=== PATIENT | male | born 1940 | race Caucasian/White ===

== ENCOUNTER 2019-12-24 16:51 | Observation (INO) | payer MEDICARE ==
[2019-12-24 17:41] LABS: #Eosinphils 0.1 thou/uL (0.0-0.7); #Lymphocytes 0.7 thou/uL (1.20-3.40); #Monocytes 0.7 thou/uL (0.11-0.59); #Neutrophils 10.7 thou/uL (1.40-6.50); %Basophils 0.1 % (0.0-1.0); %Eosinophils 0.9 % (0.0-10.0); %Lymphocytes 5.3 % (21.0-51.0); %Neutrophils 87.6 % (42.0-75.0); Hemoglobin 15.3 g/dL (14.0-18.0); Mean Corpuscular HGB CONC 34.5 g/dL (32.0-36.0); Mean Corpuscular Hemoglobin 33.3 pg (27.0-31.0); Mean Corpuscular Volume 96.5 fL (78.0-98.0); Mean Platelet Volume 7.9 fL (7.4-10.4); Platelet Count 177 thou/uL (130-400); RBC Distribution Width 12.1 % (11.5-14.5); Red Blood Cell (RBC) Count 4.58 mill/uL (4.70-6.10); White Blood Cell (WBC) Count 12.2 thou/uL (4.8-10.8)
--- NOTE | 2019-12-24 17:45 | RAD ---
EXAM: CHEST ONE VIEW HISTORY: Near syncope. Heart rate of 48. Patient weak and dizzy. COMPARISON: 03/15/2019 FINDINGS: Postsurgical changes related to CABG are again noted. A single lead left subclavian cardiac pacemakin g device remains in place. Cardiac silhouette is magnified by projection but does appear enlarged. The pulmonary vasculature is within normal limits. There is mild elevation of the right hemidiaphragm with mild volume loss at the right lung base. Minimal linear scarring versus atelectasis is seen at the lateral left lung base. The lungs otherwise appear clear. There is no consolidation seen. The most inferior aspect lateral left costophrenic angle is excluded from view. Vascular calcifications are seen in the thoracic aorta. No significant interval change. IMPRESSION: 1. No acute cardiopulmonary process. 2. Mild cardiomegaly. 3. Elevation right hemidiaphragm with mild volume loss right lung base.
[2019-12-24 17:49] LABS: INR-International Normal Ratio 1.2; PTT 32.4 SEC (22.9-36.1); Prothrombin Time 15.5 SEC (12.0-14.7)
[2019-12-24 18:04] LABS: ALT (SGPT) 14 U/L (8-55); AST (SGOT) 16 U/L (5-34); Albumin 4.3 g/dL (3.4-4.8); Alkaline Phosphatase 64 U/L (40-110); Anion Gap 12 mmol/L (10-20); BUN (Urea Nitrogen) 28 mg/dL (8.4-25.7); Bilirubin, Total 1.5 mg/dL (0.2-1.2); Calc. Creatinine Clearance 0 mL/min (70-130); Calcium 9.1 mg/dL (7.8-10.44); Carbon Dioxide 25 mmol/L (23-31); Chloride 106 mmol/L (98-107); Estimated GFR-MDRD 61; Globulin 2.8 g/dL (2.4-3.5); Glucose 131 mg/dL (83-110); Potassium 3.8 mmol/L (3.5-5.1); Protein, Total 7.1 g/dL (5.8-8.1); Sodium 139 mmol/L (136-145)
[2019-12-24 18:27] LABS: CKMB 1.8 ng/mL (0-6.6)
[2019-12-24] MEDS ORDERED: Aspirin Chewable 81 MG TAB ONE ×2 (19:10→19:12)
[2019-12-24 21:11] LABS: Troponin I 0.018 ng/mL (< 0.028)
[2019-12-24 21:30] VITALS: BMI 25.9
[2019-12-24] MEDS ORDERED: Ondansetron PF 4 MG/2 ML Vial IVP PRN (21:48)
[2019-12-24] MEDS ORDERED: Ondansetron ODT 4 MG TAB SL PRN (21:48)
[2019-12-24] MEDS ORDERED: Acetaminophen 325 MG TAB PO PRN (21:48)
[2019-12-24] MEDS ORDERED: Lactated Ringer's 1,000 ML IV SCH (22:00)
[2019-12-25 00:02] LABS: Troponin I 0.012 ng/mL (< 0.028)
[2019-12-25] MEDS ORDERED: Furosemide 20 MG TAB PO PRN (07:54)
[2019-12-25] MEDS ORDERED: Finasteride 5 MG TAB PO SCH (09:00)
[2019-12-25] MEDS ORDERED: DIFLUPREDNATE EA EYE SCH (09:00)
[2019-12-25] MEDS ORDERED: Non-Formulary Item 1 EACH (Ubidecarenone [Coq-10] 100 MG) PO SCH (09:00)
[2019-12-25] MEDS ORDERED: Fish Oil 1,000 MG CAP PO SCH (09:00)
[2019-12-25] MEDS ORDERED: Bromfenac Sodium [Prolensa] EA EYE SCH (09:00)
[2019-12-25] MEDS ORDERED: Non-Formulary Item 1 EACH (Bromfenac Sodium [Prolensa] 1 DROP) EA EYE SCH (09:00)
[2019-12-25] MEDS ORDERED: BESIFLOXACIN HCL EA EYE SCH ×2 (09:00)
[2019-12-25] MEDS ORDERED: Ubidecarenone 50 MG CAP PO SCH (09:00)
[2019-12-25] MEDS ORDERED: Lisinopril 20 MG TAB PO SCH (09:00)
[2019-12-25] MEDS ORDERED: Spironolactone 25 MG TAB PO SCH (09:00)
[2019-12-25] MEDS ORDERED: Apixaban 5 MG TAB PO SCH (09:00)
--- NOTE | 2019-12-25 13:38 | HP ---
CHIEF COMPLAINT: Near syncope. HISTORY OF PRESENT ILLNESS: This patient is an 79-year-old male, who presented to the emergency department. The patient reports that he had cataract surgery a couple of weeks ago and was in town from [place] to follow up with Dr. Johnson for followup of the cataract. He was feeling quite well, although he does admit that overnight he had some diarrhea of approximately 10 episodes of watery stool, although he denied any other symptoms. Denied any abdominal pain or cramping or nausea and felt that it was unusual and was more or like when he had a bowel prep and rather than having an infectious type of diarrhea, that appeared to resolve itself, although the patient had not eaten breakfast the morning of admission out of fear of exacerbating that condition. Although, in general, he stated he continued to feel quite well. He did come to [facility], had his appointment with Dr. Johnson, only had an exam, did not have any procedures. Subsequently, they left there, went and ate lunch. He then went to [id number] with his . They did their shopping, felt well, started back home and then stopped again at another store and his went in while he waited in the car. While he was simply sitting there, he suddenly developed a feeling of being very lightheaded and near syncopal. He felt a bit hot and felt like he needed to get more air although he specifically denies specifically feeling short of breath. He opened the door, reclined the seat and deliberately started breathing more rapidly and stated that seemed to stabilize him a bit. He had no chest pains or palpitations. No abdominal pain, cramping, or nausea. His returned to the car. She described him as appearing pale and clammy, but he felt like he was good enough for them to try to continue going home. On the way again they stopped at a post office and while his went inside, he started to recall that this felt very similar to his symptoms that he had with his prior myocardial infarction. Therefore, felt like it would be a good idea for him to come to the emergency department. He reports that during this time, he continued to deliberately over breathe, feeling like that was the right thing to do and felt like it was making him feel a little better. Once he got to the hospital, states he was so weak that he had to get some help even getting into the emergency department. He states that he gradually got better and does not relate improvement to anything that occurred while he was in the emergency department. In the emergency department, he appeared to have stable vital signs with a heart rate recorded from 48 up to 56, respirations were 16 to 22. He was afebrile and oxygen saturations were 93% to 96% on room air. He appeared to have an atrial flutter with 6:1 block. He received aspirin and a 500 mL bolus of fluids and he was subsequently admitted to the hospital as his troponin was 0.03. REVIEW OF SYSTEMS: As noted above, the patient had the episodes of diarrhea overnight. Other than that, he reports that he has been sleeping quite well. In fact, can fall asleep very readily at any time. He has no specific musculoskeletal complaints. No other [employer] complaints. Again, denied any true shortness of breath, chest pains or palpitations, although he said he never had those even with his heart attack. All other systems reviewed. All pertinent positives and negatives noted in the history of present illness. PAST MEDICAL HISTORY: Notable for coronary artery disease with a myocardial infarction in 2003 with subsequent coronary artery bypass graft. He has a history of paroxysmal atrial fibrillation, hypertension, dyslipidemia, borderline diabetes, BPH. He also had a history of mitral valve regurgitation, status post clipping. SURGICAL HISTORY: Coronary artery bypass graft, cataractectomy 2 weeks ago and the mitral valve clipping performed in [place] and a pacemaker placed in around July 2018. The patient reports that he was in cardiac rehab following his mitral valve clipping and while he was at rest between exercises, his heart rate was down around 50 and therefore he was referred back to Dr. Savage, his primary orthophotography technician, who referred him to Dr. Teague for a pacemaker. He has been getting quarterly interrogations and annual followup and reports he has had no problems with that. He has also had some skin cancers removed. FAMILY HISTORY: Brother with coronary disease. Two brothers with diabetes. Father lived until the late s. SOCIAL HISTORY: He is . He is nonsmoker, nondrinker, and nondrug user. He is full code and his would be his surrogate decision maker. CURRENT MEDICATIONS: 1. Magnesium 400 mg p.o. at bedtime. 2. CoQ10 100 mg daily. 3. Flomax 0.4 mg at bedtime. 4. Aldactone 25 mg daily. 5. Crestor 5 mg at bedtime. 6. Lasix 20 mg daily p.r.n. 7. Fish oil 1000 mg b.i.d. 8. Proscar 5 mg daily. 9. Durezol one drop each eye b.i.d. 10. Cinnamon bark 1000 mg b.i.d. 11. Prolensa one drop each eye b.i.d. 12. Besifloxacin one drop each eye b.i.d. 13. Lotensin 20 mg daily. 14. Aspirin 81 mg at bedtime. 15. Eliquis 5 mg b.i.d. ALLERGIES: NONE. PHYSICAL EXAMINATION: VITAL SIGNS: Most recent vitals, temperature 97.4, pulse 52, respirations 18, O2 saturation 97% on room air, BP is 168/77. Orthostatic vital signs were negative. GENERAL APPEARANCE: Age-appropriate male. He is awake and alert, very pleasant, cooperative. HEENT: PERRL, no OP lesions. NECK: Supple and symmetric. HEART: Regular rate and rhythm without murmurs, gallops, or rubs. LUNGS: Clear bilaterally. ABDOMEN: Soft, nontender, and nondistended. Positive bowel sounds. No masses. No organomegaly. EXTREMITIES: No cyanosis, clubbing, or edema with good peripheral pulses. PSYCHIATRIC: Normal affect and behavior. NEUROLOGIC: Cognitively intact. Moves all extremities spontaneously. No focal deficits. LABORATORY DATA: White count 12.2, hemoglobin 15.3, platelets 177. INR 1.2, PTT 32.4. Sodium 139, potassium 3.8, chloride 106, CO2 of 25, BUN 28, creatinine is 1.16, glucose 131, calcium 9.1, magnesium 2.0. Total bilirubin is 1.5, AST and ALT normal. Alkaline phosphatase 64. Troponin initially 0.030, subsequent 0.018 and 0.012. BNP 147, albumin 4.3. Chest x-ray shows no acute processes, mild cardiomegaly and elevated right hemidiaphragm with mild volume loss of the right lung base. IMPRESSION AND PLAN: 1. Near syncope. Unclear etiology at this time. However, differential would include some type of arrhythmia as the patient has not had a history of atrial flutter per se that I can find in the record. It does indicate that he has had a history of paroxysmal atrial fibrillation and it is possible that he may not have been fully relying on the pacemaker until he converted into more of a flutter rhythm and the rate might have been a bit too low for him at that particular time. We will get a pacemaker interrogation and consult Cardiology. The patient reports that he has had carotid Dopplers and an echocardiogram within the past year at Dr. Savage's office. He also has had fairly regular stress test. The most recent one here was in 2017, which was unremarkable. I believe ischemic event is less likely in light of all that, although possible. We will not consider stress testing until we are able to get all the records from Cardiology and the pacemaker interrogation. It is also possible that this could be related to the gastrointestinal issues he was having the night prior, either some type of vagal reaction following eating lunch, although temporally seems a bit late. Also, could be affected by a little bit of dehydration from the diarrheal volume losses as well, although his blood pressure has been on the high side rather than low and his orthostatics revealed his blood pressure actually went up rather than down. 2. Indeterminate troponin with a downward trend. If anything, this would represent some demand ischemia, but again, unclear until we are able to get more information from the pacemaker interrogation. 3. Slight elevation of the BUN. Again, it could be consistent with some volume loss from the diarrhea, although the patient is on daily diuretics as well. He did receive a 500 mL bolus in the emergency room. We will hold off on any more aggressive fluid resuscitation as he appears to be quite capable of hydrating orally at this point. 4. Hypertension. Continue with his home medication regimen with benazepril. 5. Hyperlipidemia. Continue with the Crestor. 6. History of atrial fibrillation. Continue with Eliquis. Of note, the patient is on nothing for rate suppression as his problem has primarily been bradycardia and it is possible this was a relative bradycardic event. 7. Mild leukocytosis, likely just demargination from stress reaction. 8. 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 Job ID: [id number]
[2019-12-25 15:51] VITALS: BP 146/70; TEMP 97.3
--- NOTE | 2019-12-25 16:34 | CON ---
DATE OF CONSULTATION: 12/25/2019 REASON FOR CONSULTATION: Dizziness, lightheadedness. Dr. Castanon is the primary provider. PRIMARY OCEAN TRANSPORTATION INTERMEDIARY: Dr. Savage. HISTORY OF PRESENT ILLNESS: Mr. Villalobos is a very pleasant 79-year-old gentleman with past history of a pacemaker in addition to atrial fibrillation, who recently presented with dizziness, lightheadedness, and near syncope. He states he had 10 bouts of diarrhea within 24 hours prior to presentation. He proceeded to the emergency room with the above. No chest pain or pressure noted. No other associated ameliorating or precipitating factors present. Pacemaker was interrogated and appeared to have normal function. He was pacing 50% of the time. No ventricular high rates were present. Echo preliminarily appeared within normal limits. PAST MEDICAL HISTORY: CAD, status post [place] and bypass surgery, atrial fibrillation, hypertension, hyperlipidemia, diabetes mellitus, mitral valve clip. SOCIAL HISTORY: Currently . HOME MEDICATIONS: Reviewed. REVIEW OF SYSTEMS: A 10-point review of systems is reviewed and as above, otherwise negative. PHYSICAL EXAMINATION: GENERAL: Patient is a pleasant male who is in no acute distress. The patient appears their stated age. VITAL SIGNS: Blood pressure 154/69, pulse 52, temperature 97.4. NEUROLOGIC: The patient is alert and oriented x3 with no focal neurologic deficits. HEENT: Sclerae without icterus. Mouth has moist mucous membranes with normal pallor. NECK: No JVD. Carotid upstroke brisk. No bruits bilaterally. LUNGS: Clear to auscultation with unlabored respirations. BACK: No scoliosis or kyphosis. CARDIAC: Regular rate and rhythm with normal S1 and S2. No S3 or S4 noted. No significant rubs, murmurs, thrills, or gallops noted throughout the precordium. PMI is not displaced. There is no parasternal heave. ABDOMEN: Soft, nontender, nondistended. No peritoneal signs present. No hepatosplenomegaly. No abnormal striae. EXTREMITIES: 2+ femoral and 2+ dorsalis pedis pulses. No cyanosis, clubbing, or edema. SKIN: No gross abnormalities. PERTINENT LABORATORY DATA: Hemoglobin 15.3, creatinine 1.16. BNP of 147. Troponin 0.03. IMPRESSION: 1. Presyncope. 2. Diarrhea. 3. Paroxysmal atrial fibrillation. 4. Status post bypass surgery. 5. Coronary artery disease. 6. Paroxysmal atrial fibrillation. RECOMMENDATIONS: Mr. Villalobos symptoms likely related to volume contraction. He states he feels back to baseline after fluid resuscitation. Otherwise, from my standpoint, I have no further recommendations. It will be okay from my standpoint to discharge home with close outpatient followup. Job ID: [id number]
[2019-12-25] MEDS ORDERED: FLU VACC TS2019-20(65YR UP)/PF 180 MCG/0.5 ML SYRINGE IM ONE (21:00)
[2019-12-25] MEDS ORDERED: Aspirin 81 mg Enteric Coated Tablet PO SCH (21:00)
[2019-12-25] MEDS ORDERED: Tamsulosin HCl 0.4 MG CAP PO SCH (21:00)
[2019-12-25] MEDS ORDERED: Non-Formulary Item 1 EACH (Magnesium Oxide [Magnesium] 400 MG) PO SCH (21:00)
[2019-12-25] MEDS ORDERED: Rosuvastatin 5 MG TAB PO SCH (21:00)
[2019-12-25] MEDS ORDERED: Magnesium Oxide 400 MG TAB PO SCH (21:00)
--- NOTE | 2019-12-25 22:50 | DIS ---
DATE OF ADMISSION: 12/24/2019 DATE OF DISCHARGE: 12/25/2019 DISCHARGE DIAGNOSES: 1. Near syncope. 2. History of coronary artery disease. 3. History of atrial fibrillation. 4. Possible atrial flutter. 5. BPH. 6. History of mitral valve regurgitation, status post clipping procedure. HISTORY OF PRESENT ILLNESS: The patient is 79-year-old male, who has the above-mentioned history, who was doing quite well, had cataract surgery 2 weeks prior, came back for followup. Had his eye exam, did well with that. The patient did report he had about 10 bouts of diarrhea the night before without abdominal pain or cramping, or fever and no nausea. He did avoid eating because of that. However, after his eye exam, he and his went to lunch and went shopping at [email or web address] and made another stop on the way home and he sat in the car where he suddenly became lightheaded, felt pale, clammy, and weak, deliberately was breathing more rapidly as he thought that helped him feel somewhat better. He subsequently decided to come to the emergency department. In the emergency department, he appeared to have atrial flutter with pacemaker pacing him around set rate at 50. The patient's symptoms did resolve spontaneously and his workup was largely unremarkable. He received a bit of fluids and was placed in the hospital on observation. He had serial troponins and telemetry, had pacemaker printouts and was seen in consultation by Dr. Mckeon. As the patient is typically followed by Dr. Savage, it was felt that this might have been a vagal episode related to his GI symptoms and possibly some dehydration. Ultimately, the patient had previously had extensive workup with Dr. Savage and it was felt there was no further workup indicated. The patient was back to his baseline and was felt to be stable for discharge to home. He will continue with his same home medications with no changes. He will follow up with his PCP and follow up with Dr. Savage. He can return to the hospital should he have any problems prior to that time. He will remain on a heart healthy diet and his activity is as tolerated. Job ID: [id number] [facility]
== END 2019-12-25 16:46 | disposition home or self-care (01) ==
LOC: ERS 16:51 → 2SW 20:31
PROVIDERS: ADMIT Internal Medicine; ATTEND Internal Medicine
DX: R55 Syncope and collapse (principal); R19.7 Diarrhea, unspecified; I25.10 Atherosclerotic heart disease of native coronary artery without angina pectoris; I48.0 Paroxysmal atrial fibrillation; N40.0 Benign prostatic hyperplasia without lower urinary tract symptoms; I25.2 Old myocardial infarction; I10 Essential (primary) hypertension; E78.5 Hyperlipidemia, unspecified; R73.03 Prediabetes; D72.829 Elevated white blood cell count, unspecified; E80.6 Other disorders of bilirubin metabolism; Z79.01 Long term (current) use of anticoagulants; Z79.82 Long term (current) use of aspirin; Z79.899 Other long term (current) drug therapy; Z95.0 Presence of cardiac pacemaker; Z95.1 Presence of aortocoronary bypass graft; Z98.42 Cataract extraction status, left eye; Z98.890 Other specified postprocedural states
CPT/HCPCS: 36415; 71045; 80053; 82553; 83735; 83880; 84484; 85025; 85610; 85730; 93005; 93306; G0378

== ENCOUNTER 2021-10-23 15:55 | Observation (INO) | payer MEDICARE ==
[2021-10-23] MEDS ORDERED: Acetaminophen 325 MG TAB PO PRN (17:43)
[2021-10-23 18:39] VITALS: BMI 25.5
[2021-10-23] MEDS ORDERED: FLU VACC QS2021-22(65YR UP)/PF 240 MCG/0.7 ML SYRINGE IM ONE (19:00)
[2021-10-23] MEDS ORDERED: Tamsulosin HCl 0.4 MG CAP PO SCH (21:00)
[2021-10-23] MEDS ORDERED: Ezetimibe 10 MG TAB PO SCH (21:00)
[2021-10-23] MEDS ORDERED: Rosuvastatin 5 MG TAB PO SCH (21:00)
[2021-10-23] MEDS: Apixaban 5 MG TAB PO SCH (22:13)
[2021-10-24 00:25] VITALS: TEMP 97.5
[2021-10-24 06:07] LABS: Anion Gap 7 mmol/L (10-20); BUN (Urea Nitrogen) 18 mg/dL (8.4-25.7); Calc. Creatinine Clearance 81 mL/min (70-130); Calcium 8.8 mg/dL (7.8-10.44); Carbon Dioxide 28 mmol/L (23-31); Cardiac Risk 3.1 (Less than 4.5); Chloride 107 mmol/L (98-107); Cholesterol 98 mg/dl (< 200 Desired); Glucose 100 mg/dL (83-110); HDL Cholesterol 32 mg/dL (>60 Neg Risk); LDL Cholesterol, Calculated 48 mg/dL; Potassium 4.1 mmol/L (3.5-5.1); Sodium 138 mmol/L (136-145); Triglycerides 89 mg/dL (Less than 150)
[2021-10-24] MEDS ORDERED: Spironolactone 25 MG TAB PO SCH (08:00)
[2021-10-24] MEDS ORDERED: Lisinopril 20 MG TAB PO SCH ×2 (09:00)
[2021-10-24] MEDS ORDERED: Aspirin 81 mg Enteric Coated Tablet PO SCH ×2 (09:00→21:00)
[2021-10-24] MEDS ORDERED: Finasteride 5 MG TAB PO SCH (09:00)
[2021-10-24] MEDS ORDERED: Lisinopril 10 MG TAB PO SCH (09:00)
[2021-10-24] MEDS: Apixaban 5 MG TAB PO SCH (09:45)
[2021-10-24 16:30] VITALS: BP 162/67
[2021-10-24 17:22] LABS: SARS-CoV-2 PCR by NAA Not Detected (NotDetected)
[2021-10-24] MEDS ORDERED: levETIRAcetam 500 MG TAB PO SCH (21:00)
== END 2021-10-24 20:24 | disposition home or self-care (01) ==
LOC: NEURO 17:01
PROVIDERS: ADMIT Internal Medicine; ATTEND Internal Medicine
DX: R42 Dizziness and giddiness (principal); R53.1 Weakness; R00.1 Bradycardia, unspecified; I48.11 Longstanding persistent atrial fibrillation; N40.0 Benign prostatic hyperplasia without lower urinary tract symptoms; I25.10 Atherosclerotic heart disease of native coronary artery without angina pectoris; I10 Essential (primary) hypertension; E78.5 Hyperlipidemia, unspecified; Z79.01 Long term (current) use of anticoagulants; Z79.82 Long term (current) use of aspirin; Z79.899 Other long term (current) drug therapy; Z95.0 Presence of cardiac pacemaker; Z95.1 Presence of aortocoronary bypass graft; Z20.822 Contact with and (suspected) exposure to COVID-19
CPT/HCPCS: 80048; 80061; 84484; 93880; U0003; U0005; 36415; G0378

== ENCOUNTER 2021-12-04 12:23 | Outpatient (CLI) | payer MEDICARE | END 2021-12-04 12:24 | disposition home or self-care (01) | LOC: EEG 12:23 | PROVIDERS: ATTEND Psychiatry & Neurology Neurology | DX: R55 Syncope and collapse (principal) | CPT/HCPCS: 95816; 95957 ==

== ENCOUNTER 2023-07-06 14:29 | Inpatient (IN) | payer MEDICARE, OTHER ==
[2023-07-06 14:55] LABS: #Monocytes 0.5 thou/uL (0.11-0.59); #Neutrophils 9.2 thou/uL (1.40-6.50); %Basophils 0.1 % (0.0-1.0); %Eosinophils 0.3 % (0.0-10.0); %Lymphocytes 6.1 % (21.0-51.0); %Monocytes 4.9 % (0.0-10.0); %Neutrophils 88.3 % (42.0-75.0); Hematocrit 40.5 % (42.0-52.0); Mean Corpuscular HGB CONC 34.6 g/dL (32.0-36.0); Mean Corpuscular Hemoglobin 33.6 pg (27.0-31.0); Mean Corpuscular Volume 97.1 fl (78.0-98.0); Platelet Count 147 10x3/uL (130-400); RBC Distribution Width 12.8 % (11.5-14.5); Red Blood Cell (RBC) Count 4.17 mill/uL (4.70-6.10); White Blood Cell (WBC) Count 10.4 10x3/uL (4.8-10.8)
[2023-07-06] MEDS ORDERED: Boostrix 0.5 ML (Tdap) VIAL (>/=7 yrs of age) ONE (14:59)
[2023-07-06 15:18] LABS: ALT (SGPT) 16 U/L (8-55); AST (SGOT) 16 U/L (5-34); Albumin 3.8 g/dL (3.4-4.8); Alkaline Phosphatase 59 U/L (40-110); Anion Gap 13 mmol/L (10-20); BUN (Urea Nitrogen) 26 mg/dL (8.4-25.7); Bilirubin, Total 1.6 mg/dL (0.2-1.2); Calc. Creatinine Clearance 0 mL/min (70-130); Calcium 8.4 mg/dL (7.8-10.44); Carbon Dioxide 20 mmol/L (23-31); Chloride 109 mmol/L (98-107); Estimated GFR 64; Globulin 2.2 g/dL (2.4-3.5); Glucose 166 mg/dL (83-110); Sodium 137 mmol/L (136-145)
[2023-07-06] MEDS ORDERED: Lidocaine 1% w/Epinephrine 1:100K 20 ML VIAL ONE (16:13)
[2023-07-06 16:46] LABS: Bilirubin Negative (Negative); Blood, Urine Negative (Negative); Clarity Clear (Clear); Glucose, Urine (Dipstick) Normal (Negative); Ketone, Urine Negative (Negative); Leukocyte Negative Leu/uL (Negative); Nitrite Negative (Negative); Protein, Urine (Dipstick) Negative (Neg-Trace); RBC/HPF None Seen HPF (0-3); Specific Gravity, Urine 1.023 (1.002-1.036); Urobilinogen Normal mg/dL (Less than 2); WBC/HPF 0-3 HPF (0-3); pH, Urine 5.5 (5.0-9.0)
[2023-07-06 16:47] LABS: Bacteria/HPF None Seen HPF (None Seen); CAUTI Indications for Culture Dysuria,urgency,freq; Squamous Epithelial 0-3 HPF (0-3)
[2023-07-06 16:51] LABS: Urine Culture Reflex No No
[2023-07-06] MEDS ORDERED: Sodium Chloride 0.9% 1,000 ML IV SCH (17:15)
[2023-07-06] MEDS ORDERED: Ondansetron PF 4 MG/2 ML Vial IVP PRN (17:16)
[2023-07-06] MEDS ORDERED: HYDROcodone/Acetaminophen 5/325 mg Tablet PO PRN (17:16)
[2023-07-06] MEDS ORDERED: Acetaminophen 650 MG Suppository PR PRN (17:16)
[2023-07-06 18:12] LABS: Troponin I Less than 0.010 ng/mL (< 0.028)
[2023-07-06 19:47] VITALS: BMI 25.9
[2023-07-06 21:00] LABS: Troponin I Less than 0.010 ng/mL (< 0.028)
[2023-07-06] MEDS ORDERED: Tamsulosin HCl 0.4 MG CAP PO SCH (21:00)
[2023-07-06] MEDS: Rosuvastatin 5 MG TAB PO SCH (21:20)
[2023-07-06] MEDS: Ezetimibe 10 MG TAB PO SCH (21:20)
[2023-07-06] MEDS: Apixaban 5 MG TAB PO SCH (21:20)
[2023-07-06] MEDS: Aspirin 81 mg Enteric Coated Tablet PO SCH (21:20)
[2023-07-06] MEDS ORDERED: Acetaminophen 500 MG TAB PO PRN (23:12)
[2023-07-07 05:26] LABS: #Eosinphils 0.1 thou/uL (0.0-0.7); #Monocytes 0.9 thou/uL (0.11-0.59); #Neutrophils 7.1 thou/uL (1.40-6.50); %Basophils 0.2 % (0.0-1.0); %Eosinophils 0.8 % (0.0-10.0); %Lymphocytes 13.5 % (21.0-51.0); %Monocytes 9.7 % (0.0-10.0); %Neutrophils 75.6 % (42.0-75.0); Hematocrit 36.2 % (42.0-52.0); Hemoglobin 12.2 g/dL (14.0-18.0); Mean Corpuscular HGB CONC 33.7 g/dL (32.0-36.0); Mean Corpuscular Hemoglobin 33.7 pg (27.0-31.0); Mean Platelet Volume 10.4 fL (7.4-10.4); Platelet Count 125 10x3/uL (130-400); Red Blood Cell (RBC) Count 3.62 mill/uL (4.70-6.10); White Blood Cell (WBC) Count 9.4 10x3/uL (4.8-10.8)
[2023-07-07 05:53] LABS: Anion Gap 10 mmol/L (10-20); BUN (Urea Nitrogen) 20 mg/dL (8.4-25.7); Calc. Creatinine Clearance 72 mL/min (70-130); Calcium 8.2 mg/dL (7.8-10.44); Carbon Dioxide 21 mmol/L (23-31); Cardiac Risk 2.5 (Less than 4.5); Chloride 110 mmol/L (98-107); Cholesterol 69 mg/dl (< 200 Desired); Estimated GFR 83; Glucose 103 mg/dL (83-110); HDL Cholesterol 28 mg/dL (>60 Neg Risk); LDL Cholesterol, Calculated 29 mg/dL; Magnesium 1.7 mg/dL (1.6-2.6); Potassium 4.6 mmol/L (3.5-5.1); Sodium 136 mmol/L (136-145); Triglycerides 61 mg/dL (Less than 150)
[2023-07-07] MEDS ORDERED: Finasteride 5 MG TAB PO SCH ×2 (09:00→21:00)
[2023-07-07] MEDS: Apixaban 5 MG TAB PO SCH (10:28)
[2023-07-07] MEDS: Rosuvastatin 5 MG TAB PO SCH (20:10)
[2023-07-07] MEDS: Fish Oil 1,000 MG CAP PO SCH (20:10)
[2023-07-07] MEDS: Ezetimibe 10 MG TAB PO SCH (20:11)
[2023-07-07] MEDS: Aspirin 81 mg Enteric Coated Tablet PO SCH (20:11)
[2023-07-07] MEDS ORDERED: Tamsulosin HCl 0.4 MG CAP PO SCH (21:00)
[2023-07-07] MEDS ORDERED: Magnesium Oxide 400 MG TAB PO SCH (21:00)
[2023-07-08 05:40] LABS: Anion Gap 9 mmol/L (10-20); BUN (Urea Nitrogen) 16 mg/dL (8.4-25.7); Calc. Creatinine Clearance 67 mL/min (70-130); Calcium 8.4 mg/dL (7.8-10.44); Carbon Dioxide 22 mmol/L (23-31); Chloride 109 mmol/L (98-107); Estimated GFR 76; Glucose 108 mg/dL (83-110); Sodium 136 mmol/L (136-145)
[2023-07-08] MEDS ORDERED: CO Q-10 CAPSULE 100 MG PO SCH (09:00)
[2023-07-08] MEDS: Fish Oil 1,000 MG CAP PO SCH (09:57)
[2023-07-08 16:15] VITALS: BP 126/69; TEMP 97.1
== END 2023-07-08 17:35 | disposition home or self-care (01) | DRG 312 ==
LOC: ERS 14:29 → 2SE 17:16 → OBSVTOIN 07-07 15:46
PROVIDERS: ADMIT Family Medicine; ATTEND Family Medicine
DX: I95.1 Orthostatic hypotension (principal); I48.21 Permanent atrial fibrillation; N17.9 Acute kidney failure, unspecified; I25.810 Atherosclerosis of coronary artery bypass graft(s) without angina pectoris; N18.9 Chronic kidney disease, unspecified; I12.9 Hypertensive chronic kidney disease with stage 1 through stage 4 chronic kidney disease, or unspecified chronic kidney disease; E78.5 Hyperlipidemia, unspecified; N40.0 Benign prostatic hyperplasia without lower urinary tract symptoms; Z95.0 Presence of cardiac pacemaker; Z95.1 Presence of aortocoronary bypass graft; I25.2 Old myocardial infarction; Z79.899 Other long term (current) drug therapy; Z79.01 Long term (current) use of anticoagulants; Z79.82 Long term (current) use of aspirin; Z82.3 Family history of stroke; Z98.42 Cataract extraction status, left eye; S01.81XA Laceration without foreign body of other part of head, initial encounter; W18.30XA Fall on same level, unspecified, initial encounter
CPT/HCPCS: 12011; 36415; 70450; 70486; 71045; 72125; 80048; 80053; 80061; 81001; 83735; 83880; 84443; 84484; 85025; 90471; 90715; 93005; 93010; 93880; G0378; J7050